=== PATIENT | male | born 1955 | race Caucasian/White ===

== ENCOUNTER → 2016-12-18 | Outpatient (CLI) | payer BC, OTHER ==
[~2016-12-18] MED LIST: AMLODIPINE BESYL5 MG PO; ASPIRIN81 M1 PO; CORGARD80 MG PO; CRESTOR10 MG PO; FISH OIL 1,0001 CAP PO; GLUCOSAMINE R1000 MG PO; NIASPAN PO; ONE DAILY MULTI1 TA3 PO; PANTOPRAZOLE SO40 MG PO
--- NOTE | ~2016-12-18 | US37 ---
[facility] A Service of [facility] RADIOLOGY TEXT RESULTS PATIENT: PARVIN DOWELL LOCATION: SNIV : 51 UNIT #: [id number] AGE: [address]: Tom Brian MD SEX: M ORDER DR: [id number] [address] [address] [id number] O MR#: [id number] Acc #: [id number] NAME: PARVIN DOWELL : 1955 SEX: M STUDY DATE/TIME: 12/18/2016 8:47 UNIT: SNIV ROOM: STUDY DESCRIPTION: US Carotid W/Doppler Bilateral Attending Physician: Tom Brian M.D. Referring Physician: Tom Brian M.D. Ordering Physician: Tom Brian M.D. Primary Care Physician: Tom Brian M.D. MEDICAL IMAGING REPORT This report is preliminary unless electronic signature is present. EXAM Carotid duplex scan DATE OF EXAMINATION 12/18/2016 HISTORY Right cervical bruit. FINDINGS The right common carotid artery has no plaque. The right internal and external carotid arteries are patent without plaque. Peak systolic velocity in the mid right internal carotid artery is 70 cm/sec with an end diastolic velocity of 26 cm/sec. The ICA/CCA ratio on the right is 0.71. Peak systolic velocity in the right external carotid artery is 188 cm/sec. The right vertebral artery is patent with antegrade flow. The left common carotid artery has no plaque. The left internal and external carotid arteries are patent without plaque. Peak systolic velocity in the distal left internal carotid artery is 68 cm/sec with an end diastolic velocity of 20 cm/sec. The ICA/CCA ration on the left is 0.79. Peak systolic velocity in the left external carotid artery is 111 cm/sec. The left vertebral artery is patent with antegrade flow. IMPRESSION Normal examination of the carotid arteries bilaterally. No significant stenosis (less than 50%) in the internal and external carotid arteries on both sides. Patent vertebral arteries bilaterally with antegrade flow. [facility] A Service of [facility] RADIOLOGY TEXT RESULTS PATIENT: PARVIN DOWELL LOCATION: SNIV : 53 UNIT #: [id number] AGE: [address]: Tom Brian MD SEX: M ORDER DR: Dictated by... Edd Aranda M.D. THIS IS AN ELECTRONICALLY VERIFIED REPORT Edd Aranda M.D. at 12/20/2016 6:45 PM KISHORE/guido TD: 12/20/2016 10:00 JOB #: [id number] MEDICAL IMAGING REPORT
== END | disposition home or self-care (01) ==
LOC: SNIV 08:02
DX: R09.89 Other specified symptoms and signs involving the circulatory and respiratory systems (principal)
CPT/HCPCS: 93880